=== PATIENT | female | born 1950 | race Hispanic/Latino ===

== ENCOUNTER 2019-05-28 06:00 | Day surgery (SDC) | payer BC, MEDICARE ==
[~2019-05-28] VITALS: Ht 165.1 cm; Wt 71.2 kg
[~2019-05-28 06:00] MED LIST: OMEP-50 PO; SODIUM CHLORIDE 0.9% 1000ML 1,000 ML IV ONE
[2019-05-28 06:50] VITALS: BP 120/62
[2019-05-28] MEDS ORDERED: MIDAZOLAM HCL 1 MG/ML 2ML VIAL ONE (08:30)
[2019-05-28] MEDS ORDERED: FENTANYL CITRATE PF 50 MCG/1 ML 2ML VIAL ONE ×2 (08:30)
[2019-05-28 08:56] VITALS: BP 109/57
[2019-05-28 09:00] VITALS: BP 109/56
[2019-05-28 09:05] VITALS: BP 112/54
[2019-05-28 09:10] VITALS: BP 113/53
[2019-05-28 09:15] VITALS: BP 114/65
== END 2019-05-28 09:25 | disposition home or self-care (01) ==
LOC: ENDO 06:00 → DAH 06:00 → ENDO 09:25
PROVIDERS: ATTEND Internal Medicine Gastroenterology
DX: K59.04 Chronic idiopathic constipation (principal); K64.0 First degree hemorrhoids; K57.30 Diverticulosis of large intestine without perforation or abscess without bleeding; K21.9 Gastro-esophageal reflux disease without esophagitis; Z90.49 Acquired absence of other specified parts of digestive tract; Z79.899 Other long term (current) drug therapy
CPT/HCPCS: 45378; A4215; A4221; A4222; A4223; A4606; A4615; A4663; J2250; J3010; J7030; 99152; 99153